=== PATIENT | female | born 1990 | race American Indian/Alaskan Native ===

== ENCOUNTER 2016-09-20 06:17 | Day surgery (SDC) | payer OTHER ==
[2016-09-16 13:49] VITALS: BMI 24.4
[2016-09-20] MEDS ORDERED: Rocuronium 10 mg/ml (5 ml) ONE (07:18)
[2016-09-20] MEDS ORDERED: Propofol 10 mg/ml Inj (20 ML) ONE ×2 (07:18→09:37)
[2016-09-20] MEDS ORDERED: ePHEDrine 50 mg/ml Inj ONE (07:18)
[2016-09-20] MEDS ORDERED: Midazolam 2 MG/2 ML VIAL ONE (07:18)
[2016-09-20] MEDS ORDERED: Bupivacaine 0.5% Inj(30mL) ONE (07:20)
[2016-09-20] MEDS ORDERED: Lidocaine 4% (Laryng-O-Jet) Kit MM ONE (07:22)
[2016-09-20] MEDS ORDERED: Succinylcholine 200 mg/10 ml Inj IV ONE (07:22)
[2016-09-20 07:29] LABS: HEMATOCRIT 35.9 % (34.0-47.0); MEAN CELL VOLUME 90.7 fl (81.0-99.0); MEAN CORPUSCULAR HEMOGLOBIN 30.1 pg (27.0-31.0); MEAN CORPUSCULAR HGB CONC 33.2 g/dL (33.0-37.0); RED CELL DISTRIBUTION WIDTH 14.1 % (11.5-14.5); WHITE BLOOD COUNT 7.4 K/uL (4.8-10.8)
[2016-09-20] MEDS ORDERED: Lactated Ringer's 1,000 ML IV ONE ×2 (07:40→07:50)
[2016-09-20] MEDS ORDERED: Desflurane Inhalation Anesthetic Liq (240 ml) ONE (07:47)
[2016-09-20] MEDS ORDERED: Dexamethasone 4 mg/1 ml ONE (08:05)
[2016-09-20] MEDS ORDERED: Neostigmine Methylsulfate 2 MG/2 ML ML IV ONE (09:23)
[2016-09-20] MEDS ORDERED: Lactated Ringer's 1,000 ML IV SCH (10:00)
[2016-09-20] MEDS ORDERED: HYDROmorphone 0.5 mg/0.5 ml ISec IVP PRN (10:00)
[2016-09-20] MEDS ORDERED: Oxycodone/Acetaminophen 5/325 mg Tab PO ONE (12:12)
[2016-09-20 12:41] VITALS: RESP 18
[2016-09-20 12:59] VITALS: O2SAT 98
[2016-09-20 13:46] VITALS: BP 117/70; PULSE 90; TEMP 98
--- NOTE | 2016-10-09 12:23 | OP ---
PROCEDURE DATE: 09/20/2016 PREOPERATIVE DIAGNOSIS: Bilateral endometriomas. POSTOPERATIVE DIAGNOSIS: Bilateral endometriomas. SURGEON: Yulissa Sheridan MD [facility] NURSE: Dr. Akil Faust ANESTHESIA: General, administered by Dr. Aguilar. ESTIMATED BLOOD LOSS: 25 mL. Salas catheter put out approximately 300 mL of clear urine. The patient received 1600 mL of D5LR int raoperatively. OPERATIVE FINDINGS: A left ovarian endometrioma, approximately 7 cm in size, a right ovarian endomet rioma, 5 cm in size, adhesions, multiple fibroids, predominant 4 cm fundal myoma. OPERATION PERFORMED: Bilateral cystectomy, myomectomy. Dr. Faust was the technical administrative assistant in the procedure. He was helpful in creating exposure, obtaining hemostasi s, creating retraction and closure of the patient. The procedure would not have been possible withou t his assistance. PROCEDURE: After informed consent was obtained, the patient was taken to the operating room where cholo rodriguez was given general anesthesia. She was then placed in a dorsal lithotomy position, prepped and drap ed in the usual sterile fashion. A weighted speculum was inserted in the vagina. Cervix was visuali zed and grasped with a single-tooth tenaculum. The cervix was gently dilated and a HUMI uterine maxine pulator was inserted in the uterine cavity as a means to manipulate the uterus. A Salas catheter was inserted into the urethra to monitor the patient's urinary output. Attention was then turned to the umbilicus where Marcaine was infused and an 8 mm incision was made. The abdomen was then tented upw mariel and the Veress needle was introduced into the abdominal cavity and placement was confirmed with a fluid-filled syringe. The abdomen was then insufflated to 15 mmHg. An 8 mm robotic port was then i ntroduced into the abdominal cavity and placement was confirmed with the laparoscope. The abdomen wa s then surveyed with the findings noted above. Attention was then turned approximately 4 cm superior to the right anterior iliac crest. The skin was infused with Marcaine, an 8 mm incision was made an d an 8 mm robotic port was introduced under direct visualization. A similar procedure was performed on the left. An technical administrative assistant port was then placed approximately 10 cm left and lateral to the umbilicus . The patient was then placed in steep Trendelenburg. The table was lowered. The robot was brought along the patient's side and was docked without complication. The instruments used for the surgery where a scissor, PK dissector. The instruments were inserted into the abdomen under direct visualiza tion. I then broke scrub and proceeded to the surgical console. The left 7 cm endometrioma was scor ed with the hot sridevi. The cyst wall was then from the ovarian cortex by undermining with the PK dissector. The procedure was performed in a circumferential fashion. The cyst wall was extr acted. The ovary was preserved and hemostasis was obtained with the cautery. There were adhesions p osteriorly to the uterus and the ovary was dissected away from the posterior aspect of the uterus and hemostasis was noted. Attention was then turned to the right ovary, which in similar fashion, the c ortex was scored with the scissors and the cortex was from the cyst wall by undermining it with the PK. The cyst wall was then removed. Hemostasis was noted. Attention was then turned to th e uterine fibroids. There was one 4 cm fibroid pedunculated noted on the fundal region. The stalk w as coagulated serially with the PK and transected with the scissors. There were several smaller fibr oids approximately 1 cm and pedunculated. In a similar fashion, the stalks were coagulated and trans ected with the PK. Hemostasis was noted. All specimens were then inserted into an Endobag. The gloria ot was then undocked. The specimens were extracted through the umbilicus. The umbilical incision wa s repaired with 0 Vicryl in a running fashion. The skin was closed with 3-0 Biosyn and the 8 mm inci sions were closed with Dermabond. All sponge, lap, needle, and instrument counts were correct x 2 an d the patient was awakened from general anesthesia and taken to the recovery room in awake and stable condition. Yulissa Sheridan MD cc: [phone] TT: 10/09/2016 12:22:31 en
--- NOTE | 2016-11-27 12:30 | CP.SDSHP ---
Same Day Surgery H & P - Allergies Allergies: Allergies No Known Allergies Allergy (Verified 09/16/16 13:49) Short Stay Discharge - Short Stay Discharge Admitting Diagnosis/Reason for Visit: N83.20 N80.1 R10.2 Referrals: Brooklyn Herbert MD [Primary Care Provider] - Progress Note/Discharge Note with Instructions: s/p myomectomy dicharge home NPV no heavy lifting percocet and motrian as needed
== END 2016-09-20 14:30 | disposition home or self-care (01) ==
LOC: H.OPSURG 06:17
PROVIDERS: ATTEND Obstetrics & Gynecology Gynecology
DX: N80.1 Endometriosis of ovary (principal); D64.9 Anemia, unspecified

== ENCOUNTER 2016-09-26 19:53 | Emergency (ER) | payer OTHER ==
[2016-09-26 19:53] VITALS: BMI 24.4
[2016-09-26 20:21] VITALS: BP 105/62; PULSE 74; RESP 18; TEMP 98.2; O2SAT 99
--- NOTE | 2016-09-26 21:31 | ED PDOC ---
HPI: Wound Care - HPI Time Seen by Provider: 09/26/16 20:54 Chief Complaint (Nursing): Wound Check Chief Complaint (Provider): wound check History Per: Patient Exam Limitations: no limitations Onset/Duration Of Symptoms: Sudden Onset Current Symptoms Are (Timing): Gone Now Additional Complaint(s): Fernando Carter is a 25 year old female, with a previous medical history of anemia, who presents to the ED for the evaluation of a wound. Pt reports undergoing surgery 6 days ago to remove a fibroid by Dr. Sheridan. Pt states as she was cleaning the incision wound on the RLQ today she noticed a small drop of blood on the band aide. Pt called her DrDorota's office who instructed her to be seen in the ED for further evaluation. Pt reports no pain and states bleeding resolved upon ED arrival. Pt denies any pain, fever, or chills. Pt denies any addition complaints. OBGYN: Karla Sheridan MD Past Medical History Reviewed: Historical Data, Nursing Documentation, Vital Signs Vital Signs: Last Vital Signs Temp 98.2 F 09/26/16 20:18 Pulse 74 09/26/16 20:18 Resp 18 09/26/16 20:18 BP 105/62 09/26/16 20:18 Pulse Ox 99 09/26/16 20:18 - Medical History PMH: Anemia Denies: Chronic Kidney Disease - Surgical History Other surgeries: fibroid removal - Family History Family History: States: Unknown Family Hx - Home Medications Home Medications: Ambulatory Orders Medication Instructions Recorded Control 1 tab PO DAILY 09/20/16 Cyanocobalamin [Vitamin B12 100 100 mcg PO DAILY 09/20/16 mcg Tab] Docusate [Colace] 100 mg PO BID PRN 09/20/16 Ibuprofen [Motrin Tab] 800 mg PO TID PRN 09/20/16 oxyCODONE/Acetaminophen [Percocet 1 mg PO Q4 PRN 09/20/16 5/325 mg Tab] - Allergies Allergies/Adverse Reactions: Allergies Allergy/AdvReac Type Severity Reaction Status Date / Time No Known Allergies Allergy Verified 09/16/16 13:49 Review of Systems ROS Statement: Except As Marked, All Systems Reviewed And Found Negative Constitutional: Negative for: Fever, Chills Gastrointestinal: Negative for: Abdominal Pain Physical Exam - Reviewed Nursing Documentation Reviewed: Yes Vital Signs Reviewed: Yes - Physical Exam Appears: Positive for: Well, Non-toxic, No Acute Distress Gastrointestinal/Abdominal: Positive for: Normal Exam, Bowel Sounds, Soft, Other (LLQ and RLLQ have 3 healing wounds without avtive bleeding, no surrounding erythema and no swelling. ). Negative for: Tenderness Neurologic/Psych: Positive for: Alert, Oriented - ECG O2 Sat by Pulse Oximetry: 99 (RA) Pulse Ox Interpretation: Normal - Progress ED Course And Treament: Discussed the case with Dr. Roni Elam who agrees patient can be discharged and continue wound care. Medical Decision Making Medical Decision Making: Initial Impression: Wound check Initial Plan: * physical exam * OBGYN consultation * disposition Scribe Attestation: Documented by Kathryn Smith, acting as a scribe for Marcelino De La O PA-C. Provider Scribe Attestation: All medical record entries made by the Scribe were at my direction and personally dictated by me. I have reviewed the chart and agree that the record accurately reflects my personal performance of the history, physical exam, medical decision making, and the department course for this patient. I have also personally directed, reviewed, and agree with the discharge instructions and disposition. Disposition - Clinical Impression Clinical Impression: Visit for wound check - Patient ED Disposition Is Patient to be Admitted: No - Disposition Referrals: uYlissa Sheridan MD [Staff Provider] - Disposition: Routine/Home Disposition Time: 21:36 Condition: STABLE Additional Instructions: Follow up with Dr. Sheridan as previously scheduled. Instructions: Acute Wound Care (ED)
== END 2016-09-26 22:04 | disposition home or self-care (01) ==
LOC: H.ER 19:53
DX: Z51.89 Encounter for other specified aftercare (principal); D64.9 Anemia, unspecified